=== PATIENT | female | born 1960 | race Caucasian/White ===

== ENCOUNTER 2017-07-15 16:58 | Emergency (ER) | payer OTHER ==
[~2017-07-15] VITALS: Wt 90.1 kg
[~2017-07-15 16:58] MED LIST: NO MEDS
[2017-07-15] MEDS ORDERED: IBUPROFEN 600 MG TAB PO ONE (17:30)
--- NOTE | 2017-07-15 18:17 | RADRPT ---
PROCEDURE: US Lower extremity Venous. CLINICAL INDICATION: Leg swelling and pain TECHNIQUE: Multiple sonographic images of the right lower extremity deep venous system was obtaine d utilizing grayscale, color-flow, compressive sonography and doppler imaging with augmentation. Th e images were reviewed on a PACS workstation. COMPARISON: None. FINDINGS: There is normal compressibility and flow within the right common femoral, superficial femoral and po pliteal veins. There is normal respiratory variability and response to augmentation. The deep veins of the calf were incompletely visualized. IMPRESSION: No sonographic evidence for deep venous thrombosis. RPTAT: HBST .Mo Denton MD, MD Date Time Electronically viewed and signed by .Mo Denton MD, on 07/15/2017 18:16 .T/
--- NOTE | 2017-07-15 18:28 | ERD ---
ER Documentation Chief Complaint Chief Complaint sent by pmd to r/o dvt HPI 57-year-old female with a history of bilateral lower extremity varicose veins sent by her PMD to rule out DVT. Patient states that for the past 2 months her swelling and pain in bilateral lower extremities has gotten worse but it is worse in the right lower extremity. She is awaiting custom compression stockings. She saw her primary care physician today, who was concerned about a DVT and sent her here for evaluation. She denies any associated symptoms such as lower extremity numbness, weakness, chest pain, or shortness of breath. She denies any other medical problems. ROS All systems reviewed and are negative except as per history of present illness. Medications Home Meds Reported Medications [No Meds] No Conflict Check 10/12/09 Allergies Allergies: Coded Allergies: nitroglycerin (Verified Adverse Reaction, Mild, SEVERE HEADACHE, 07/15/17) PMhx/Soc Medical and Surgical Hx: pt denies Medical Hx, pt denies Surgical Hx Hx Neurological Disorder: No Hx Respiratory Disorders: No Hx Cardiac Disorders: No Hx Miscellaneous Medical Probl: Yes (RECURRENT HEADACHES) Hx Alcohol Use: No Hx Substance Use: No Hx Tobacco Use: No Smoking Status: Never smoker FmHx Family History: No diabetes Physical Exam Vitals Vital Signs Date Time Temp Pulse Resp B/P Pulse Ox O2 Delivery O2 Flow Rate FiO2 07/15/17 17:00 98.1 97 20 115/65 98 Physical Exam Const: Well-appearing, no respiratory distress. Nontoxic Head: Atraumatic Eyes: Normal Conjunctiva ENT: Normal External Ears, Nose and Mouth. Neck: Full range of motion..~ No meningismus. Resp: Clear to auscultation bilaterally Cardio: Regular rate and rhythm, no murmurs Abd: Soft, non tender, non distended. Normal bowel sounds Skin: No petechiae or rashes Back: No midline or flank tenderness Ext: No cyanosis. 2+ DP and PT pulses bilaterally. There is bilateral lower extremity swelling with superficial varicose veins noted. No pitting edema. Right lower extremity is larger than left. There is diffuse tenderness to palpation of bilateral lower extremities, right greater than left. Positive Homans sign on right. Neur: Awake and alert. Strength and sensations intact in all 4 extremities. Psych: Normal Mood and Affect Results 24 hrs Current Medications Medications (Trade) Dose Ordered Sig/Tobi Route PRN Reason Start Time Stop Time Status Last Admin Dose Admin Ibuprofen (Motrin) 600 mg ONCE ONCE PO 07/15/17 17:30 07/15/17 17:31 DC 07/15/17 17:29 Procedures/MDM Venous ultrasound right lower extremity does not show evidence of DVT MDM Patient is presenting for bilateral lower extremity swelling that seems to be chronic with chronic pain. Given her significant pain in the right lower extremity, an ultrasound was done and did not show evidence of a DVT. There is no evidence of thrombophlebitis. I did recommend NSAIDs for pain and gave her a dose of ibuprofen here with some relief. I also recommended [id number] compression stockings until she is able to get once that her doctor ordered. Departure Diagnosis: Primary Impression: Edema of both lower legs due to peripheral venous insufficiency Additional Impression: Bilateral leg pain Condition: Stable AG FIELD MD Jul 15, 2017 18:28
== END 2017-07-15 18:53 | disposition home or self-care (01) ==
LOC: FTE 16:58
DX: R60.0 Localized edema (principal); M79.605 Pain in left leg
CPT/HCPCS: 93971; Z7502; Z7610